=== PATIENT | female | born 1955 ===

== ENCOUNTER → 2016-12-15 | Outpatient (CLI) | payer MEDICAID | LOC: FIMAGING 15:09 | PROVIDERS: ATTEND Physician Assistant | DX: J06.9 Acute upper respiratory infection, unspecified (principal); R05 Cough; R50.9 Fever, unspecified ==

== ENCOUNTER → 2017-05-27 | Outpatient (CLI) | payer MEDICAID | LOC: FIMAGING 08:56 | PROVIDERS: ATTEND Physician Assistant | DX: Z13.820 Encounter for screening for osteoporosis (principal); M85.80 Other specified disorders of bone density and structure, unspecified site ==

== ENCOUNTER → 2018-02-23 | Outpatient (CLI) | payer MEDICAID | LOC: FIMAGING 11:12 | PROVIDERS: ATTEND Physician Assistant | DX: M50.321 Other cervical disc degeneration at C4-C5 level (principal) ==

== ENCOUNTER → 2018-03-05 | Outpatient (CLI) | payer MEDICAID | LOC: FIMAGING 19:19 | PROVIDERS: ATTEND Physician Assistant | DX: S49.91XA Unspecified injury of right shoulder and upper arm, initial encounter (principal) ==